=== PATIENT | female | born 1960 | race Caucasian/White ===

== ENCOUNTER 2023-11-25 03:08 | Inpatient (IN) | payer MEDICARE, BC ==
[2023-11-25] VITALS (8 sets, daily range): BP systolic 147–162; BP diastolic 73–90; PULSE 71–98; TEMP 97.9–98.2
[~2023-11-25] VITALS: Ht 165.1 cm; Wt 138.4 kg
[2023-11-25] MEDS ORDERED: LR 1,000 ML IV SCH (03:45)
[2023-11-25] MEDS ORDERED: PROTONIX 40MG T40 MG PO (03:51)
[2023-11-25] MEDS ORDERED: LASIX 20MG TABL20 MG PO (03:52)
[2023-11-25] MEDS ORDERED: LYRICA 75MG CAP75 MG PO (03:52)
[2023-11-25] MEDS ORDERED: COZAAR100 MG PO (03:52)
[2023-11-25] MEDS ORDERED: LEXAPRO 10MG10 MG PO (03:52)
[2023-11-25] MEDS ORDERED: REQUIP0.25 MG PO (03:52)
[2023-11-25] MEDS ORDERED: K-DUR 10 MEQ T10 MEQ PO (03:53)
[2023-11-25] MEDS ORDERED: hydrALAZINE 20 MG/ML 1 ML VIAL IV PRN (04:00)
[2023-11-25] MEDS ORDERED: HYDROmorphone 0.5 MG/0.5 ML SYRINGE IV PRN (04:00)
--- NOTE | 2023-11-25 06:37 | NUR ---
Patient arrived to the floor at 0632 via EMS from [place], with NG tube to right nare 55cm, with IV infusing well to left AC, tucked her in, on room air, will report off to dayshift nurse.
--- NOTE | 2023-11-25 08:53 | NUR ---
PATIENT ARRIVED TO FLOOR FROM [facility] AT 0630. VSS. PATIENT COMPLIANING OF PAIN 8/10 PAIN MEDS GIVEN ORDERED. PATIENT HAS NO OTHER NEEDS AT THIS TIME. ADMISSION, ASSESSMENT AND MED REC. COMPLETED. CALL LIGHT IN REACH PATIENT IS SBA AT THIS TIME.
[2023-11-25] MEDS ORDERED: Pantoprazole 40 MG in NS 10 ML IV SCH (09:00)
--- NOTE | 2023-11-25 09:33 | NUR ---
contact worker lithography met with pt to discuss discharge planning. She reports to live with her , Jurgen [phone] in [place]. She sees KELL Cabezas for PCP needs and obtains medications from [facility] in [place] with no difficulties. She confirms to have Medicare A/B and BCBS. She is independent with ADLS and uses a CPAP for DME. She does not have a DPOA-HC and is agreeable to her being NOK. Discharge Plan: home
[2023-11-25] MEDS ORDERED: SYNTHROID 0.10.15 MG PO (10:50)
[2023-11-25] MEDS ORDERED: EUTHYROX175 MCG PO (10:51)
[2023-11-25] MEDS ORDERED: SYNTHROID0.175 MG PO (10:54)
[2023-11-25] MEDS ORDERED: LORazepam 2 MG/ML 1 ML VIAL IV PRN (14:15)
--- NOTE | 2023-11-25 23:39 | NUR ---
patient lying in bed, alert and oriented x4. denies chest pain and shortness of breath. reports headache rated 10/10, per request pain medication provided. NG tube in place to LIS, drainage a pinkish jauregui. pt reports passing gas at this time. o2 sats in low 80s upon assessment on room air, o2 4L per NC placed on patient, sats in 90s. BLE nonpitting edema noted. SBA with IV pole during ambulation. call light within reach. pt has no further needs, questions or concerns at this time.
[2023-11-26] VITALS (14 sets, daily range): BP systolic 120–150; BP diastolic 63–82; PULSE 74–92; TEMP 98.1–100.9
[2023-11-26 07:20] LABS: BASO % 0.2 % (0.0-2.0); GRAN % 78.7 % (42.2-75.2); LYMPH # 1.1 K/mm3 (1.2-3.4); LYMPH % 10.8 % (20.0-51.0); MEAN CELL VOLUME 88 fl (80.0-100.0); MEAN CORPUSCULAR HEMOGLOBIN 27 pg (27-31); MEAN CORPUSCULAR HGB CONC 31 g/dl (33.0-37.0); MEAN PLATELET VOLUME 10.3 fl (7.4-10.4); MONO % 9.7 % (1.7-9.3); PLATELET COUNT 263 K/mm3 (130-400); RED BLOOD COUNT 4.01 M/mm3 (4.10-5.30); REDCELL DISTRIBUTION WIDTH-CV 14.9 % (11.5-14.5)
[2023-11-26 07:32] LABS: HEMATOCRIT 35.3 % (37.0-47.0)
[2023-11-26 07:37] LABS: CALCIUM 8.5 mg/dL (8.4-10.2); CREATININE, serum 0.82 mg/dL (0.57-1.11); POTASSIUM 4.3 mEq/L (3.5-4.5)
--- NOTE | 2023-11-26 09:00 | NUR ---
PATIENT ACCIDENTLY PULLED NG TUBE OUT. PER DR. SAHA WE DO NOT NEED TO REINSERT AT THIS TIME. PATIENT HAD BM THIS AM AND HAS BEEN PASSING GAS SINCE YESTERDAY MORNING 11/25/23.
[2023-11-26] MEDS ORDERED: Ketorolac 15 MG/ML VIAL IV ONE ×2 (09:30→16:15)
--- NOTE | 2023-11-26 09:30 | NUR ---
SHIFT ASSESSMENT COMPLETE. VSS. PATIENT RESTING IN BED. NPO STATUS TILL AFTER KUB RESULTS THIS AM. ALL MORNING IV MEDS GIVEN ORDERED. PATIENT STATES HEADACHE REQUESTING MEDS. CONTACTED DR. SAHA AND RECEIVED ORDER FOR TORADOL IV, MED GIVEN ORDERD. PATIENT HAS NO OTHER REQUEST AT THIS TIME EXPECT WANTING HER PO REGULAR MORNING MEDS AND SOME WATER, ADVISED PATIENT ONCE WE GET RESULTS OF KUB AND DR. WOO HAS REVIEWED IT WE CAN ADMINISTER THOSE AND GET HER SOME WATER. PATIENT HAS NO OTHER REQUEST AT THIS TIME. CALL LIGHT IN REACH
--- NOTE | 2023-11-26 11:39 | NUR ---
D: Shipping & Receiving Lead stopped by room on rounds. A: Pt was resting and content. Pt has no needs right now. P: Shipping & Receiving Lead informed pt that if she needed anything from the upholstery parts sorter area to let her nurse know. Shipping & Receiving Lead will follow up as needed.
--- NOTE | 2023-11-26 19:39 | NUR ---
PATIENT LAYING IN BED ALERT AND ORIENTED. 2L NC. CALL LIGHT WITHIN REACH. NO ACUTE EVENTS.
[2023-11-26] MEDS ORDERED: Pregabalin 75 MG CAP PO SCH (21:00)
[2023-11-26] MEDS ORDERED: Melatonin 3 MG TAB PO SCH (21:00)
[2023-11-26] MEDS ORDERED: rOPINIRole 0.5 MG TAB PO SCH (21:00)
[2023-11-26] MEDS ORDERED: Acetaminophen 500 MG TAB PO PRN (21:45)
[2023-11-27] VITALS (9 sets, daily range): BP systolic 132–173; BP diastolic 69–96; PULSE 69–80; TEMP 97.5–98.8
[2023-11-27] MEDS ORDERED: Losartan 50 MG TAB PO SCH (09:00)
[2023-11-27] MEDS ORDERED: Escitalopram 10 MG TAB PO SCH (09:00)
--- NOTE | 2023-11-27 11:28 | NUR ---
PATIENT ALERT AND ORIENTED X4. VSS. PATIENT HERE FOR SBO. PATIENT REPORTS HAVING TWO BM'S YESTERDAY (11/25). PATIENT DENIES ANY PAIN THIS AM. IV INT, FLUSHES WELL. PATIENT TOLERATING PO. AM MEDS ADMINISTERED. NO FURTHER NEEDS. CALL LIGHT IN REACH.
[2023-11-27] MEDS ORDERED: PROAIR HFA0.09 MG/AC IH (15:03)
[2023-11-27] MEDS ORDERED: Albuterol/Ipratropium 3 MG-0.5 MG/3 ML Neb Soln IH ONE ×2 (15:07→15:25)
[2023-11-27] MEDS ORDERED: Furosemide 40 MG/4 ML VIAL IV ONE (15:30)
[2023-11-27] MEDS ORDERED: Albuterol 90 MCG/PUFF 8 GM MDI IH SCH (15:38)
--- NOTE | 2023-11-27 17:27 | NUR ---
DISCHARGE INSTRUCTIONS PROVIDED. PATIENT EDUCATION GIVEN. IV DC'D. FOLLOW UP APPOINTMENT DISCUSSED. MEDICATIONS REVIEWED. PATIENT DENIES ANY QUESTIONS OR CONCERNS.
--- NOTE | 2023-11-27 18:05 | NUR ---
PATIENT ESCORTED OUT VIA WHEELCHAIR
== END 2023-11-27 18:05 | disposition home or self-care (01) | DRG 389 ==
LOC: SURG 03:08
PROVIDERS: Nurse Practitioner Family; ADMIT Internal Medicine
DX: K56.609 Unspecified intestinal obstruction, unspecified as to partial versus complete obstruction (principal); N17.9 Acute kidney failure, unspecified; Z68.42 Body mass index [BMI] 45.0-49.9, adult; D72.829 Elevated white blood cell count, unspecified; I10 Essential (primary) hypertension; G47.33 Obstructive sleep apnea (adult) (pediatric); F32.A Depression, unspecified; F41.9 Anxiety disorder, unspecified; G25.81 Restless legs syndrome; K21.9 Gastro-esophageal reflux disease without esophagitis; G89.29 Other chronic pain; E66.01 Morbid (severe) obesity due to excess calories; Z96.653 Presence of artificial knee joint, bilateral; E03.9 Hypothyroidism, unspecified; D64.9 Anemia, unspecified; G62.9 Polyneuropathy, unspecified; I35.0 Nonrheumatic aortic (valve) stenosis; Z79.890 Hormone replacement therapy; Z90.710 Acquired absence of both cervix and uterus; Z88.0 Allergy status to penicillin; Z88.8 Allergy status to other drugs, medicaments and biological substances; Z90.89 Acquired absence of other organs; Z79.899 Other long term (current) drug therapy
CPT/HCPCS: J0780; J1170; J1650; J1885; J1940; J2060; J2470; J7120